=== PATIENT | male | born 1945 | race Caucasian/White ===

== ENCOUNTER → 2021-01-09 | Day surgery (SDC) | payer MEDICARE, BC ==
[2021-01-05 10:09] LABS: BASOPHILS % 0.5 % (0.0-1.0); EOSINOPHILS # (AUTO) 0.1 (0.0-0.4); EOSINOPHILS % 1.4 % (0.0-6.0); HEMATOCRIT 48.4 % (38.2-49.6); HEMOGLOBIN 15.5 g/dL (14.0-18.0); LYMPHOCYTES # (AUTO) 1.9 (1.0-3.2); LYMPHOCYTES % 26.5 % (18.0-39.1); MEAN CORPUSCULAR HEMOGLOBIN 30.9 pg (28-32); MEAN CORPUSCULAR VOLUME 96.6 fL (81-99); MONOCYTES # (AUTO) 0.7 (0.2-0.8); MONOCYTES % 9.3 % (4.4-11.3); NEUTROPHILS # (AUTO) 4.5 (2.1-6.9); NEUTROPHILS % 61.5 % (38.7-80.0); PLATELET COUNT 189 x10e3/uL (140-360); RED BLOOD COUNT 5.01 x10e6/uL (4.3-5.7); RED CELL DISTRIBUTION WIDTH 13.2 % (11.7-14.4)
[~2021-01-09] MED LIST: ASPIRIN EC81 MG PO; DICYCLOMINE HCL10 MG PO; METAMUCIL FIBE3.4 GM PO; OMEPRAZOLE40 MG PO; RANITIDINE HCL150 M1 PO; SERTRALINE HCL50 MG PO; VIAGRA100 MG PO; Z.0.LISINOPRIL40 MG PO; Z.0.SIMVASTATIN40 MG PO; Z.2.DOXAZOSIN MESYLA PO
[2021-01-09 12:45] VITALS: BP 124/72
== END | disposition home or self-care (01) ==
LOC: OR 10:00
PROVIDERS: ATTEND Internal Medicine Gastroenterology
DX: Z09 Encounter for follow-up examination after completed treatment for conditions other than malignant neoplasm (principal); D12.4 Benign neoplasm of descending colon; K57.30 Diverticulosis of large intestine without perforation or abscess without bleeding; K64.8 Other hemorrhoids; K31.89 Other diseases of stomach and duodenum; K30 Functional dyspepsia; K21.9 Gastro-esophageal reflux disease without esophagitis; E78.5 Hyperlipidemia, unspecified; I10 Essential (primary) hypertension; R06.09 Other forms of dyspnea; I49.1 Atrial premature depolarization; N40.0 Benign prostatic hyperplasia without lower urinary tract symptoms; F32.9 Major depressive disorder, single episode, unspecified; F17.210 Nicotine dependence, cigarettes, uncomplicated; Z88.1 Allergy status to other antibiotic agents; Z91.048 Other nonmedicinal substance allergy status; Z01.810 Encounter for preprocedural cardiovascular examination; Z01.812 Encounter for preprocedural laboratory examination; Z20.822 Contact with and (suspected) exposure to COVID-19; Z68.32 Body mass index [BMI] 32.0-32.9, adult; Z85.828 Personal history of other malignant neoplasm of skin
CPT/HCPCS: 36415; 45384; 85025; 88305; 93005; U0002; 45378

== ENCOUNTER → 2021-09-11 | Day surgery (SDC) | payer MEDICARE, BC ==
[2021-09-06 09:35] LABS: BASOPHILS % 0.6 % (0.0-1.0); EOSINOPHILS # (AUTO) 0.1 (0.0-0.4); EOSINOPHILS % 1.7 % (0.0-6.0); HEMATOCRIT 50.9 % (38.2-49.6); HEMOGLOBIN 16.2 g/dL (14.0-18.0); LYMPHOCYTES # (AUTO) 2.4 (1.0-3.2); LYMPHOCYTES % 34.2 % (18.0-39.1); MEAN CORPUSCULAR HEMOGLOBIN 29.7 pg (28-32); MEAN CORPUSCULAR HGB CONC 31.8 g/dL (31-35); MEAN CORPUSCULAR VOLUME 93.4 fL (81-99); MONOCYTES # (AUTO) 0.7 (0.2-0.8); MONOCYTES % 9.2 % (4.4-11.3); NEUTROPHILS # (AUTO) 3.8 (2.1-6.9); NEUTROPHILS % 53.6 % (38.7-80.0); PLATELET COUNT 197 x10e3/uL (140-360); RED BLOOD COUNT 5.45 x10e6/uL (4.3-5.7); RED CELL DISTRIBUTION WIDTH 14.5 % (11.7-14.4)
[~2021-09-11] MED LIST changes: +ETOMIDATE 2 MG/ML 10 ML INJ IV ONE; +FENTANYL CITRATE/PF 100MCG/2 ML INJ ONE; +MIDAZOLAM HCL 2 MG/2 ML VIAL ONE; +POVIDONE IODINE 0.05% 0.05 % ML PO ONE; +PROPOFOL IV EMULSION 10 MG/ML 20 ML VIAL ONE; +PROTONIX20 MG PO
== END | disposition home or self-care (01) ==
LOC: OR 09:41
PROVIDERS: ATTEND Internal Medicine Gastroenterology
DX: K31.A0 Gastric intestinal metaplasia, unspecified (principal); K29.50 Unspecified chronic gastritis without bleeding; B96.81 Helicobacter pylori [H. pylori] as the cause of diseases classified elsewhere; K44.9 Diaphragmatic hernia without obstruction or gangrene; K21.9 Gastro-esophageal reflux disease without esophagitis; K57.90 Diverticulosis of intestine, part unspecified, without perforation or abscess without bleeding; Z71.3 Dietary counseling and surveillance; I10 Essential (primary) hypertension; I49.1 Atrial premature depolarization; E78.5 Hyperlipidemia, unspecified; R17 Unspecified jaundice; E66.9 Obesity, unspecified; N40.0 Benign prostatic hyperplasia without lower urinary tract symptoms; L40.9 Psoriasis, unspecified; F32.A Depression, unspecified; F17.210 Nicotine dependence, cigarettes, uncomplicated; Z88.1 Allergy status to other antibiotic agents; Z91.048 Other nonmedicinal substance allergy status; Z01.810 Encounter for preprocedural cardiovascular examination; Z01.812 Encounter for preprocedural laboratory examination; Z20.822 Contact with and (suspected) exposure to COVID-19; Z79.899 Other long term (current) drug therapy; Z68.30 Body mass index [BMI] 30.0-30.9, adult
CPT/HCPCS: 36415; 43239; 85025; 88305; 88312; 93005; J2250; J2704; J3010; U0002